=== PATIENT | male | born 1970 | race Caucasian/White ===

== ENCOUNTER 2022-07-08 08:16 | Emergency (ER) | payer BC ==
[2022-07-08] VITALS (12 sets, daily range): BP systolic 140–184; BP diastolic 81–113
[~2022-07-08] VITALS: Ht 185.4 cm; Wt 122.5 kg
[~2022-07-08 08:16] MED LIST: ASPIRIN81 MG PO; HYDROCHLOROTH12.5 MG PO; LOSARTAN POTASS50 MG PO; ROSUVASTATIN CA40 MG; TADALAFIL5 MG; VITAMIN B-12500 MCG PO; VITAMIN D320 MCG
[2022-07-08 11:18] LABS: BASO% 0.4 % (0-3); EOS% 5.3 % (0-8); HEMATOCRIT 40.2 % (39.0-50.0); HEMOGLOBIN 13.8 g/dl (14.0-18.0); IMMATURE GRANULOCYTES 0.1 % (0.0-5.0); LYMPH% 25.3 % (15-41); MEAN CELL VOLUME 91.2 fL CALC (80.0-100.0); MEAN CORPUSCULAR HGB 31.3 pG CALC (26.0-32.0); MEAN CORPUSCULAR HGB CONC 34.3 g/dL CAL (32.0-36.0); MONO% 7.7 % (2-13); NEUT# 4.75 thou/uL (1.82-7.42); NEUT% 61.2 % (42-76); RED BLOOD COUNT 4.41 mill/uL (4.70-6.10); RED CELL DISTRI WIDTH 12.4 % (11.5-15.5)
[2022-07-08 11:33] LABS: ALBUMIN 4.1 g/dL (3.2-5.0); ALKALINE PHOSPHATASE 81 u/l (38-126); ANION GAP 9 (6-22 (CALC)); BILIRUBIN, TOTAL 0.4 mg/dL (0.2-1.3); BUN 12 mg/dL (9-20); BUN/CREATININE RATIO 14 (12-20 (CALC)); CARBON DIOXIDE 25 mmol/l (22-30); CHLORIDE 106 mmol/l (95-108); CREATININE 0.9 mg/dL (0.7-1.3); GFR FOR AFR.AMER. > 60 ML/MIN (>=60 (CALC)); GFR OTHER RACES > 60 ML/MIN (>=60 (CALC)); POTASSIUM 3.7 mmol/l (3.5-5.1); SGOT/AST 75 u/l (17-59); SODIUM 136 mmol/l (137-146); TOTAL PROTEIN 7.4 g/dL (6.3-8.2)
[2022-07-08] MEDS ORDERED: METHOCARBAMOL500 MG PO (13:56)
[2022-07-08] MEDS ORDERED: NAPROXEN500 MG PO (13:56)
== END 2022-07-08 14:58 | disposition home or self-care (01) | DRG 313 ==
LOC: ED 08:16
PROVIDERS: Emergency Medicine
DX: R07.9 Chest pain, unspecified (principal); I10 Essential (primary) hypertension; E11.9 Type 2 diabetes mellitus without complications; E78.5 Hyperlipidemia, unspecified; Z79.84 Long term (current) use of oral hypoglycemic drugs

== ENCOUNTER 2024-04-18 08:25 | Day surgery (SDC) | payer BC ==
[~2024-04-18] VITALS: Ht 185.4 cm; Wt 115.7 kg
[~2024-04-18 08:25] MED LIST changes: +METHOCARBAMOL500 MG PO; +NAPROXEN500 MG PO
[2024-04-18] MEDS ORDERED: LACTATED RINGER'S 1,000 ML IV ONE (08:34)
[2024-04-18] MEDS ORDERED: FAMOTIDINE 10MG/ML 2ML SDV IV ONE (08:34)
[2024-04-18 10:13] VITALS: BP 131/89
[2024-04-18] MEDS ORDERED: LIDOCAINE HCL 2% 2ML SDV IV ONE (17:28)
[2024-04-18] MEDS ORDERED: PROPOFOL 200 MG/20 ML VIAL IV ONE (17:28)
== END 2024-04-18 10:25 | disposition home or self-care (01) | DRG 379 ==
LOC: ENDO 08:25 → ORM 10:05 → ENDO 10:05 → ORM 11:15
PROVIDERS: ATTEND Surgery
PROC: 0DBH8ZX Excision of Cecum, Via Natural or Artificial Opening Endoscopic, Diagnostic (ICD-10-PCS; principal; 2024-04-18)
PROC: 0DBL8ZX Excision of Transverse Colon, Via Natural or Artificial Opening Endoscopic, Diagnostic (ICD-10-PCS; 2024-04-18)
DX: K57.31 Diverticulosis of large intestine without perforation or abscess with bleeding (principal); D12.0 Benign neoplasm of cecum; K63.5 Polyp of colon; K64.8 Other hemorrhoids; I10 Essential (primary) hypertension; E11.9 Type 2 diabetes mellitus without complications; E78.5 Hyperlipidemia, unspecified; Z01.818 Encounter for other preprocedural examination; Z11.52 Encounter for screening for COVID-19; K92.1 Melena